=== PATIENT | male | born 1985 | race Asian ===

== ENCOUNTER 2017-01-26 08:22 | Emergency (ER) | payer OTHER ==
[~2017-01-26] VITALS: Ht 172.7 cm; Wt 72.6 kg
== END 2017-01-26 09:15 | disposition home or self-care (01) ==
LOC: ED 08:22
DX: K02.9 Dental caries, unspecified (principal)
CPT/HCPCS: 99282

== ENCOUNTER 2018-10-30 16:21 | Emergency (ER) | payer OTHER ==
[~2018-10-30] VITALS: Ht 175.3 cm; Wt 72.6 kg
[2018-10-30 16:30] VITALS: TEMP 99
[2018-10-30 17:30] VITALS: BP 130/74
== END 2018-10-30 17:30 | disposition home or self-care (01) ==
LOC: ED 16:21
DX: S05.01XA Injury of conjunctiva and corneal abrasion without foreign body, right eye, initial encounter (principal); S05.11XA Contusion of eyeball and orbital tissues, right eye, initial encounter; W50.0XXA Accidental hit or strike by another person, initial encounter; Y92.89 Other specified places as the place of occurrence of the external cause
CPT/HCPCS: 99283

== ENCOUNTER 2019-09-18 12:33 | Emergency (ER) | payer OTHER ==
[~2019-09-18] VITALS: Ht 175.3 cm; Wt 72.6 kg
[2019-09-18 12:48] VITALS: TEMP 98.8
[2019-09-18 14:12] VITALS: BP 136/69
== END 2019-09-18 14:12 | disposition home or self-care (01) ==
LOC: ED 12:33
DX: K04.7 Periapical abscess without sinus (principal); K08.89 Other specified disorders of teeth and supporting structures; F17.290 Nicotine dependence, other tobacco product, uncomplicated
CPT/HCPCS: 96372; 99283; J1885

== ENCOUNTER 2020-05-23 11:35 | Inpatient (IN) | payer OTHER ==
[~2020-05-23] VITALS: Ht 180.3 cm; Wt 81.6 kg
[2020-05-23 11:42] VITALS: BP 167/108; TEMP 98.7
[2020-05-23 12:18] LABS: PLATELET COUNT 387 K/uL (142-355)
[2020-05-23 12:27] LABS: POTASSIUM 3.4 mmol/L (3.6-5.2)
[2020-05-23 14:03] VITALS: BP 148/94
[2020-05-23 16:08] VITALS: BP 144/88
[2020-05-23 20:08] VITALS: BP 142/90; TEMP 98.2
[2020-05-24 00:07] VITALS: BP 149/91; TEMP 98.5
[2020-05-24 01:41] VITALS: BP 116/58; TEMP 98.7; Ht 180.3 cm; Wt 81.6 kg
[2020-05-24 04:00] VITALS: BP 146/89; TEMP 98.1
[2020-05-24 05:32] LABS: POTASSIUM 3.9 mmol/L (3.6-5.2)
[2020-05-24 05:52] LABS: PLATELET COUNT 223 K/uL (142-355)
[2020-05-24 08:00] VITALS: BP 165/95; TEMP 98.5
[2020-05-24 12:00] VITALS: BP 155/101; TEMP 98.2
[2020-05-24 19:58] VITALS: BP 185/111; TEMP 98
[2020-05-25] VITALS (7 sets, daily range): BP systolic 142–183; BP diastolic 81–102; TEMP 97.4–99
[2020-05-25 05:48] LABS: POTASSIUM 3.4 mmol/L (3.6-5.2)
[2020-05-25 05:50] LABS: PLATELET COUNT 304 K/uL (142-355)
[2020-05-26 05:24] VITALS: BP 148/91; TEMP 98.1
[2020-05-26 06:07] LABS: PLATELET COUNT 354 K/uL (142-355)
[2020-05-26 06:37] LABS: POTASSIUM 3.5 mmol/L (3.6-5.2)
[2020-05-26 08:00] VITALS: BP 155/97; TEMP 98.3
[2020-05-26 12:00] VITALS: BP 164/97; TEMP 98.4
[2020-05-26 16:00] VITALS: BP 172/95; TEMP 97.9
[2020-05-26 20:00] VITALS: BP 145/92; TEMP 97.7
[2020-05-27 00:12] VITALS: BP 174/97; TEMP 98.1
[2020-05-27 04:00] VITALS: BP 166/95; TEMP 98.6
[2020-05-27 06:14] LABS: POTASSIUM 3.5 mmol/L (3.6-5.2)
[2020-05-27 08:00] VITALS: BP 165/102; TEMP 97.7
[2020-05-27 12:00] VITALS: BP 146/85; TEMP 98.1
== END 2020-05-27 14:10 | disposition home or self-care (01) | DRG 440 ==
LOC: ED 11:35 → MED/SURG 16:55
PROVIDERS: Internal Medicine Endocrinology, Diabetes & Metabolism; ADMIT Family Medicine
DX: K85.80 Other acute pancreatitis without necrosis or infection (principal); E87.6 Hypokalemia; F14.10 Cocaine abuse, uncomplicated; F12.10 Cannabis abuse, uncomplicated; F10.10 Alcohol abuse, uncomplicated; Z72.0 Tobacco use; D72.828 Other elevated white blood cell count
CPT/HCPCS: 36415; 80053; 80307; 80320; 81000; 82150; 83690; 85027; 96361; 96365; 96375; 99284; J1650; J1885; J2175; J2270; J2405; J2550; J3411; J3475; J3490; J7120; Q9963